=== PATIENT | male | born 1940 | race Caucasian/White ===

== ENCOUNTER → 2020-06-01 | Outpatient (CLI) | payer MEDICARE, OTHER ==
--- NOTE | 2020-06-01 15:31 | CARD ---
MR#: [id number] Date of Study: 06/01/2020 Ordering Physician: ABDELRAHMAN NAILS, Referring Physician: ABDELRAHMAN NAILS, Tech: Bisi Bauer APPROVED REPORT EXAM: Two-dimensional and M-mode echocardiogram with Doppler and color Doppler. Other Information Quality : AverageHR: 67bpm INDICATION Syncope RISK FACTORS Hypertension 2D DIMENSIONS RVDd3.1 (2.9-3.5cm)Left Atrium(2D)2.6 (1.6-4.0cm) IVSd0.9 (0.7-1.1cm)Aortic Root(2D)3.6 (2.0-3.7cm) LVDd5.1 (3.9-5.9cm)LVOT Diameter2.0 (1.8-2.4cm) PWd0.9 (0.7-1.1cm)LVDs3.0 (2.5-4.0cm) FS (%) 41.5 %SV88.2 ml LVEF(%)72.2 (>50%) Aortic Valve AoV Peak Jose.125.7cm/sAoV VTI25.4cm AO Peak GR.6.3mmHgLVOT Peak Jose.116.1cm/s LVOT VTI 26.27cmAO Mean GR.3mmHg MEET (VMAX)2.81mv6VNA (VTI)3.28cm2 Mitral Valve MV E Ybhxecpg75.6cm/sMV DECEL TRPD802nq MV A Zrmnzkpi59.5cm/sMV GFF79yd E/A Ratio0.8MVA (PHT)2.56cm2 TDI E/Lateral E'9.4E/Medial E'10.8 Pulmonary Valve PV Peak Uzqtidze83.8cm/sPV Peak Grad.4mmHg Tricuspid Valve TR P. Ptqtmmdg458yy/sRAP DTUYMCAK1flDt TR Peak Gr.14eyToYRST23dkEn Pulmonary Vein S1 Dpxgbgnb31.9cm/sD2 Sieojotu39.3cm/s PVa [id number] LEFT VENTRICLE The left ventricle is normal size. There is normal left ventricular wall thickness. The left ventricu lar systolic function is normal and the ejection fraction is within normal range. The Ejection Fracti on is 60-65%. There is normal LV segmental wall motion. Transmitral Doppler flow pattern is Grade I-a bnormal relaxation pattern. RIGHT VENTRICLE The right ventricle is normal size. There is normal right ventricular wall thickness. The right ventr icular systolic function is normal. ATRIA The left atrium size is normal. The right atrium size is normal. The interatrial septum is intact wit h no evidence for an atrial septal defect or patent foramen ovale as noted on 2-D or Doppler imaging. AORTIC VALVE The aortic valve is thickened but opens well. Doppler and Color Flow revealed trace aortic regurgitat ion. There is no significant aortic valvular stenosis. Calculated aortic valve area is 2.88 cm2 with maximum pressure gradient of 7 mmHg and mean pressure gradient of 4 mmHg. MITRAL VALVE The mitral valve is normal in structure and function. There is no evidence of mitral valve prolapse. There is no mitral valve stenosis. Doppler and Color-flow revealed trace mitral regurgitation. TRICUSPID VALVE The tricuspid valve is normal in structure and function. Doppler and Color Flow revealed trace tricus pid regurgitation with an estimated PAP of 24 mmHg. There is no tricuspid valve stenosis. PULMONIC VALVE The pulmonic valve is not well visualized. Doppler and Color Flow revealed trace pulmonic valvular re gurgitation. There is no pulmonic valvular stenosis. GREAT VESSELS The aortic root is normal in size. The IVC is normal in size and collapses >50% with inspiration. PERICARDIAL EFFUSION There is no evidence of significant pericardial effusion. Critical Notification Critical Value: No <Conclusion> The left ventricular systolic function is normal and the ejection fraction is within normal range. Th e Ejection Fraction is 60-65%. There is normal LV segmental wall motion. Signed by : Abdelrahman Nails, Electronically Approved : 06/01/2020 15:31:34
== END ==
LOC: ECHO 10:49
PROVIDERS: ATTEND Internal Medicine Cardiovascular Disease
DX: I35.8 Other nonrheumatic aortic valve disorders (principal); R55 Syncope and collapse
CPT/HCPCS: 93306